=== PATIENT | male | born 1975 | race Caucasian/White ===

== ENCOUNTER 2016-09-01 18:11 | Outpatient (RCR) | payer BC ==
[2016-08-20 19:34] VITALS: BP 113/78
[2016-08-21 08:10] VITALS: BP 124/65
[2016-08-21] MEDS: VANCOMYCIN 1500 MG/NS 500 ML IVPB IV SCH ×4 (08:30→19:50)
[2016-08-21 21:57] VITALS: BP 120/82
[2016-08-22] MEDS: VANCOMYCIN 1500 MG/NS 500 ML IVPB IV SCH ×4 (08:18→21:13)
[2016-08-22 10:25] VITALS: BP 108/77
[2016-08-22 23:28] VITALS: BP 129/78
[2016-08-23] MEDS: VANCOMYCIN 1500 MG/NS 500 ML IVPB IV SCH ×2 (07:15)
[2016-08-23 09:30] VITALS: BP 122/76
[2016-08-24] MEDS: VANCOMYCIN INJECTION 1,750 MG in NS IV 500 ML 500 ML IV SCH ×2 (08:20→19:31)
--- NOTE | 2016-08-24 09:39 | Diagnostic Imaging Report ---
INDICATION: Evaluate PICC line placement. Comparison made with prior examination from 09/20/11. FINDINGS: The heart size is normal. Pacemaker overlies the left hemithorax. There is no pleural effusion, pneumothorax or pneumonia. The mediastinum is unremarkable. There is a right upper extremity PICC line which has tip in superior vena cava. IMPRESSION: No acute cardiopulmonary abnormality. Dictated by: Dictated on workstation # [id number]
[2016-08-24 11:36] VITALS: BP 120/70
[2016-08-24 19:25] VITALS: BP 123/78
[2016-08-29] MEDS: VANCOMYCIN INJECTION 1,750 MG in NS IV 500 ML 500 ML IV SCH ×2 (09:25→18:59)
[2016-08-29 11:34] VITALS: BP 131/83
[2016-08-29 19:02] VITALS: BP 125/72
[2016-08-29 21:20] VITALS: BP 125/72
[2016-08-30 17:47] VITALS: BP 125/72
[2016-08-30] MEDS: VANCOMYCIN INJECTION 1,750 MG in NS IV 500 ML 500 ML IV SCH (17:53)
[2016-08-31] MEDS: VANCOMYCIN INJECTION 1,750 MG in NS IV 500 ML 500 ML IV SCH ×2 (08:17→18:37)
[2016-08-31 10:56] VITALS: BP 139/95
[2016-08-31 18:48] VITALS: BP 113/72
[2016-08-31 21:45] VITALS: BP 113/72
[~2016-09-01] VITALS: Ht 180.3 cm; Wt 114.8 kg
[2016-09-01] MEDS: VANCOMYCIN INJECTION 1,750 MG in NS IV 500 ML 500 ML IV SCH ×2 (08:56→19:54)
[2016-09-01 11:00] VITALS: BP 135/83
[2016-09-01 18:11] VITALS: BP 117/81
[~2016-09-01 18:11] MED LIST: ACHD5005 PO; SODIUM CHLORIDE (ADD-VANTAGE) 250 ML ONE; SULF1TAB38 PO; TROUGH ORDER-PHARMACY XX NR; VANCOMYCIN 1 GM ADD-VANTAGE VIAL IV ONE; VANCOMYCIN 500 MG/VIAL IV ONE
[2016-09-01 22:07] VITALS: BP 117/81
[2016-09-02] MEDS ORDERED: VANCOMYCIN INJECTION 2,250 MG in NS IV 500 ML 500 ML IV SCH (13:15)
== END 2016-11-18 | disposition home or self-care (01) ==
LOC: 4TH RCR 18:11
PROVIDERS: ATTEND Family Medicine
DX: T81.4XXA Infection following a procedure, initial encounter (principal); Z79.2 Long term (current) use of antibiotics
CPT/HCPCS: 36415; 36569; 71010; 76937; 80202; 96365; 96366